=== PATIENT | female | born 1965 | race Caucasian/White ===

== ENCOUNTER 2016-11-05 01:16 | Emergency (ER) | payer OTHER ==
[~2016-11-05] VITALS: Ht 170.2 cm; Wt 100.0 kg
--- NOTE | ~2016-11-05 | CT15 ---
[facility] A Service of [facility] & [facility] RADIOLOGY TEXT RESULTS PATIENT: EB CASTORENA LOCATION: SED : 67 UNIT #: [id number] AGE: [address]: Clifotn Lan MD SEX: F ORDER DR: [id number] [place] [id number] E MR#: [id number] Acc #: [id number] NAME: EB CASTORENA : 1965 SEX: F STUDY DATE/TIME: 11/05/2016 2:06 UNIT: SED ROOM: STUDY DESCRIPTION: CT Angio Chest Attending Physician: Clifton Lan M.D. Ordering Physician: Clifton Lan M.D. Primary Care Physician: Kenyon Thomas M.D. MEDICAL IMAGING REPORT This report is preliminary unless electronic signature is present. EXAM CTA chest with contrast DATE 11/05/2016 HISTORY Acute chest pain and shortness of breath today. Bilateral lower abdominal pain today. Appendectomy. COMPARISON CT abdomen and pelvis with contrast 11/05/2016. CT abdomen and pelvis without contrast 04/18/2013. CT chest, abdomen, pelvis 08/27/2013. PROCEDURE 2 mm axial images through the chest after IV contrast administration. 3-D coronal MIP reformatted images were obtained. This CT exam was performed with one or more of the following radiation dose reduction techniques: Automatic exposure control, adjustment of mA and/or kV according to patient size, and iterative reconstruction. FINDINGS There is aneurysmal dilation of the descending thoracic-upper abdominal aorta measuring 5.9 x 6.1 cm in the transverse plane, extending nearly 9.1 cm craniocaudally on today's examination, with focal dissection along its anterior margin. The aneurysmal dilation appears increased compared to the 04/18/2013 examination where it measured only 5.3 x 5 cm. Additionally, high-density fluid is demonstrated in the posterior left hemithorax inferiorly, thought to represent hemothorax. There is loss of clear delineation of the left lateral margin of the descending thoracic aorta near this level, and acute aortic injury cannot be excluded. There is thought to be focal dissection within the distal descending thoracic STS. [facility] A Service of [facility] & [facility] RADIOLOGY TEXT RESULTS PATIENT: EB CASTORENA LOCATION: SED : 67 UNIT #: [id number] AGE: [address]: Clifton Lan MD SEX: F ORDER DR: aorta versus intramural hematoma (series 5, image 70). There are signs of prior ascending aortic repair. There is ectasia of the ascending thoracic aorta at the sinuses of Valsalva measuring 3.9 cm in the coronal plane. There is aneurysmal dilation of the transverse aorta mid segment up to 4.3 cm, which has not significantly changed from 08/27/2013, and a chronic-appearing dissection flap is seen at this location. There is aneurysmal dilation of the right subclavian artery up to 2.4 cm and the left subclavian artery up to 2.5 cm, each of which appears unchanged from 08/27/2013. Stable mild cardiac enlargement. Probable passive atelectatic type changes within the left lower lobe and lingula. Focal presumed atelectasis within the right middle lobe. Mild cardiomegaly. Mitral valve replacement. Old left rib fractures. No definite acute osseous abnormality. IMPRESSION 1. Abnormal examination. The critical findings have been discussed with Dr. Lan at the time of this dictation. Vascular surgery consultation is recommended at this time. 2. There is aneurysmal dilation of the distal descending thoracic aorta beginning above the level of the diaphragm and extending into the upper abdominal aorta. The aneurysmal dilation extends nearly 9 cm craniocaudally, and measures 5.9 x 6.1 cm transversely, significantly increased in size compared to the 2013 study, where it measured 5.3 x 5 cm. Additionally, left side hemothorax has developed, with loss of clear delineation of the margin of the descending thoracic aorta, worrisome for loss of integrity of the thoracic aortic wall or active aortic bleeding. 3. There is focal dissection flap within the distal descending-upper abdominal aortic junction, which appears new compared to the 2010 examination. 4. Suspected intramural hematoma along the distal descending thoracic aorta (image 80). 5. 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 6. Presumed old surgical changes of ascending thoracic aorta. 7. Ectasia of the aortic root at the sinuses of Valsalva 3.9 cm, thought most likely to be a stable finding. 8. Presumed passive atelectatic type changes within the lingula and left lower lobe. More patchy atelectasis within the right middle lobe. 9. Stable cardiomegaly. Signs of prior mitral valve replacement. 10. CT abdomen and pelvis performed on this same date has been dictated separately. [facility]. [facility] A Service of [facility] RADIOLOGY TEXT RESULTS PATIENT: EB CASTORENA LOCATION: [facility] : 67 UNIT #: [id number] AGE: [address]: Clifton Lan MD SEX: F ORDER DR: Dictated by... Anne-Marie Leavitt M.D. THIS IS AN ELECTRONICALLY VERIFIED REPORT Anne-Marie Leavitt M.D. at 11/05/2016 9:39 PM Brent/vidya TD: 11/05/2016 18:02 JOB #: [id number] MEDICAL IMAGING REPORT Page 1 of 1
--- NOTE | ~2016-11-05 | EKG ---
PATIENT: EB CASTORENA UNIT #: [id number] Ventricular Rate: 55 BPM Atrial Rate: 55 BPM P-R Interval: 118 ms QRS Duration: 88 ms Q-T Interval: 488 ms QTC Calculation(Bezet): 466 ms P [place]: -69 degrees Calculated R [place]: 34 degrees Calculated T [place]: 49 degrees Diagnosis Line: Sinus bradycardia Diagnosis Line: Nonspecific ST abnormality Diagnosis Line: Abnormal ECG Diagnosis Line: When compared with ECG of 28-FEB-2010 22:41, Diagnosis Line: T wave inversion less evident in Anterolateral Diagnosis Line: leads Diagnosis Line: Confirmed by RENÉE CALERO MD ([id number]) on Diagnosis Line: 11/20/2016 10:03:01 PM INTERPRETING : JAZMINE
--- NOTE | ~2016-11-05 | CT2 ---
[facility] A Service of [facility] RADIOLOGY TEXT RESULTS PATIENT: EB CASTORENA LOCATION: SED : 67 UNIT #: [id number] AGE: [address]: Clifton Lan MD SEX: F ORDER DR: [id number] [place] [id number] E MR#: [id number] Acc #: [id number] NAME: EB CASTORENA : 1965 SEX: F STUDY DATE/TIME: 11/05/2016 2:06 UNIT: SED ROOM: STUDY DESCRIPTION: CT Abd and Pelv W Cont Attending Physician: Clifton Lan M.D. Ordering Physician: Clifton Lan M.D. Primary Care Physician: Kenyon Thomas M.D. MEDICAL IMAGING REPORT This report is preliminary unless electronic signature is present. EXAMINATION CT abdomen and pelvis with contrast DATE 11/05/2016 HISTORY Acute chest pain and shortness of breath today with bilateral lower extremity pain. Previous appendectomy. COMPARISON CT abdomen and pelvis without contrast 04/18/2013. PROCEDURE 5 mm axial images from the lung bases through the lesser trochanters after intravenous contrast administration. Enteric contrast not administered. Sagittal and coronal reformatted images were obtained. This CT exam was performed with one or more of the following radiation dose reduction techniques: Automatic exposure control, adjustment of mA and/or kV according to patient size, and iterative reconstruction. FINDINGS ABDOMEN FINDINGS: Incompletely imaged fusiform aneurysmal dilation of the distal descending thoracic aorta, upper abdominal aorta extending nearly 8 cm craniocaudally. The aneurysm measures about 5.9 x 6.1 cm at the level of the diaphragmatic hiatus, increased from the 04/18/2013 examination, where it measured 5.3 x 5 cm. Focal dissection is seen within the abdominal aorta, which appears to begin just above the level of the diaphragmatic hiatus and terminates above the origin of the celiac artery (series 4, image 11 denoted by arrows). The dissection is age indeterminate but is a new finding compared to the postcontrast CT of 06/01/2010. [facility] A Service of [facility] & [facility] RADIOLOGY TEXT RESULTS PATIENT: EB CASTORENA LOCATION: SED : 67 UNIT #: [id number] AGE: [address]: Clifton Lan MD SEX: F ORDER DR: High-density fluid is demonstrated within the posterior left pleural space, and left basilar hemothorax is suspected. Consolidative type change is present in the vicinity of the left lower lobe and lingula, as well. Cyst in the right hepatic lobe. The spleen, gallbladder, pancreas, adrenals are normal. Bilateral renal cortical scarring and moderate bilateral renal atrophy. Signs of previous ventral abdominal hernia repair. There is a recurrent midline abdominal hernia above the mesh measuring nearly 5.1 cm craniocaudally, containing only omental fat. There is also recurrent hernia below the level of the mesh measuring 4.2 cm craniocaudally, containing omental fat. Bowel appears nonthickened and noninflamed. The abdominal aorta is tortuous. There is aneurysmal dilation of the infrarenal abdominal aorta at the level of the bifurcation measuring 4.5 cm transversely, with aneurysmal dilation of the proximal left common iliac artery up to 2.5 cm. There is aneurysmal dilation of the left internal iliac artery up to 2.4 cm. There is mild left perinephric stranding along the lower pole, of indeterminate etiology or significance. PELVIS FINDINGS: IUD in place with uterus retroflexed. Heterogeneous thickening of the uterine fundus could represent leiomyomas. No pelvic free fluid identified. Urinary bladder and rectum are normal. Surgical clips in bilateral inguinal regions. Sacral Tarlov cysts. Lumbar levoscoliosis. No acute osseous abnormalities are identified. IMPRESSION 1. 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 Focal dissection is seen at this same level, which is age indeterminate but is a new finding since more remote 2011 CT abdomen. 2. Hemothorax is demonstrated within the left lower chest. Acute traumatic aortic injury or active aortic bleeding cannot be excluded. Correlate with additional CTA chest findings from this same date. 3. Aneurysmal dilation of the abdominal aortic bifurcation and left common iliac artery and left internal iliac artery as described in the report, increased from prior exam. 4. Additional CT findings include: Ventral abdominal hernias above and below the level of previous mesh repair, containing only fat. 5. Suspected uterine leiomyomas with intrauterine device in place. 6. Appendix not visualized. 7. Hepatic cysts. [facility]. [facility] A Service of [facility] & [facility] RADIOLOGY TEXT RESULTS PATIENT: EB CASTORENA LOCATION: [facility] [place] [place] : 67 UNIT #: [id number] AGE: [address]: Clifton Lan MD SEX: F ORDER DR: 8. CTA chest performed on this same date has been dictated separately. Dictated by... Anne-Marie Leavitt M.D. THIS IS AN ELECTRONICALLY VERIFIED REPORT Anne-Marie Leavitt M.D. at 11/05/2016 9:39 PM JATIN/vidya TD: 11/05/2016 17:50 JOB #: [id number] MEDICAL IMAGING REPORT Page 1 of 1
[~2016-11-05 01:16] MED LIST: ASPIRIN PO; BENICAR PO; CELEXA PO; COZAAR100 MG PO; DIOVAN160 MG PO; FERGON240 ( 27 ) PO; FLO-PRED15 MG/5 ML; LASIX PO; LEVAQUIN PO; NIASPAN PO; NORCO1 TAB 10/3 PO; NORVASC10 MG; PHENERGAN PO; PHENERGAN W/CO120 ML PO; ROBITUSSIN ALL118 ML PO; SEROQUEL50 MG PO; SYNTHROID125; VISTARIL PO; VIT C PO; WELLBUTRIN PO; ZOCOR PO; ZOCOR-BORROW, D10 MG; ZOCOR20 MG PO; [UNRECOGNIZED DRUG - OTHER] PO
[2016-11-05 01:38] LABS: BASOPHIL% 0.6 % (0-2.5); EOSINOPHIL# 0.1 X10e3 (0-0.7); HEMATOCRIT 32.4 % (35.0-45.0); HEMOGLOBIN 10.5 gm/dL (12.0-16.0); LYMPHOCYTE# 2.1 X10e3 (1.0-3.5); LYMPHOCYTE% 35.5 % (17.0-45.0); MEAN CELL VOLUME 85.4 FL (83-96); MEAN CORPUSCULAR HEMOGLOBIN 27.8 PG (28-34); MEAN CORPUSCULAR HGB CONC 32.6 g/dL (30-36); MEAN PLATELET VOLUME 8.7 FL (6.5-11.5); MONOCYTE# 0.5 X10e3 (0-1.0); MONOCYTE% 8.5 % (3.0-12.0); NEUTROPHIL# 3.3 X10e3 (1.5-7.1); NEUTROPHIL% 54.4 % (40-75); PLATELET COUNT 168 X10e3 (140-420); RED BLOOD COUNT 3.79 X10e (3.90-5.30); RED CELL DISTRIBUTION WIDTH 19.4 % (11.0-15.5)
[2016-11-05 01:40] LABS: DIFF IND NO
[2016-11-05 02:00] LABS: POC - CKMB 1.3 ng/mL (0.0-7.9); POC - TROPONIN <0.05 ng/mL (<=0.05)
[2016-11-05 02:00] LABS: ALKALINE PHOSPHATASE 63 U/L (32-92); ALT (SGPT) 11 U/L (10-40); AST (SGOT) 14 U/L (10-42); BILIRUBIN, DIRECT <0.1 mg/dL (0.0-0.2); BILIRUBIN,INDIRECT 0.2 mg/dL (0.0-0.9); BILIRUBIN,TOTAL 0.3 mg/dL (0.2-2.0); BLOOD UREA NITROGEN 21 mg/dL (9-23); CALCIUM SERUM 8.4 mg/dL (8.4-10.2); CARBON DIOXIDE 23 mmol/L (22-31); CHLORIDE 109 mmol/L (100-111); GLOM FILT RATE Estimated 28.6 mL/min (>60); GLUCOSE FASTING 95 mg/dL (70-110); LIPASE 53 U/L (22-51); POTASSIUM 3.1 mmol/L (3.5-5.1); PROTEIN TOTAL SERUM 6.9 g/dL (6.0-8.3); SODIUM 139 mmol/L (135-145)
== END 2016-11-05 04:30 ==
LOC: SED 01:16
PROVIDERS: Emergency Medicine
DX: I71.1 Thoracic aortic aneurysm, ruptured (principal)
CPT/HCPCS: 36415; 71275; 74177; 80048; 80076; 82553; 83690; 84484; 85025; 93005; 96374; 96375; 99291; J1170; J2405; Q9967

== ENCOUNTER → 2016-12-12 | Outpatient (CLI) | payer OTHER ==
[2016-12-12 09:10] LABS: POC - CREATININE 1.52 mg/dL (0.44-1.03)
[2016-12-12 09:10] LABS: POC - CREATININE 1.49 mg/dL (0.44-1.03)
[2016-12-12 09:36] LABS: CREATININE SERUM 2.1 mg/dL (0.6-1.4); GLOM FILT RATE Estimated 26.8 mL/min (>60)
== END | disposition home or self-care (01) ==
LOC: SCT 08:36
PROVIDERS: Surgery
DX: I71.4 Abdominal aortic aneurysm, without rupture (principal)
CPT/HCPCS: 36415; 82565; 84520

== ENCOUNTER → 2016-12-19 | Outpatient (CLI) | payer OTHER ==
--- NOTE | ~2016-12-19 | CT15 ---
[facility] A Service of [facility] & [facility] RADIOLOGY TEXT RESULTS PATIENT: EB CASTORENA [facility] 67 UNIT #: [id number] AGE: [address]: ILEANA THOMPSON MD SEX: F ORDER DR: [id number] [facility] [address] [place], [place] [address] [id number] O MR#: [id number] Acc #: [id number] NAME: EB CASTORENA : 1965 SEX: F STUDY DATE/TIME: 12/19/2016 11:58 UNIT: [facility] ROOM: STUDY DESCRIPTION: CT Angio Chest Attending Physician: Ileana Thompson Referring Physician: Ileana Thompson Ordering Physician: Heriberto Thompson M.D. Primary Care Physician: Kenyon Thomas M.D. MEDICAL IMAGING REPORT This report is preliminary unless electronic signature is present EXAM CT scan of the chest, abdomen and pelvis with angiographic reconstructions HISTORY Follow-up aortic dissection and aortic stent therapy. Marfan's syndrome with back pain for a month. COMPARISON Unenhanced CT scans from 11/09/2016 of the chest and also 11/06/2016 that is a chest angio and CT abdomen and pelvis with contrast from 11/05/2016. TECHNIQUE Spiral imaging was performed through the chest, abdomen and pelvis as the patient was given 70 mL of Isovue 370. 3-D reconstructions of the arterial structures were generated. This CT exam was performed with one or more of the following radiation dose reduction techniques: automatic exposure control, adjustment of mA and/or kV according to patient size, and iterative reconstruction. FINDINGS Along or within the major fissure on the left side there is an ovoid area of probably loculated pleural fluid. It has smooth margins. It is about 2.1 cm in maximum dimension. It is slightly smaller than on 11/05/2016. In the right middle lobe there is a triangular shaped area of parenchymal density in the anterior portion and that is about 2.3 cm in maximum dimension and that is unchanged from the prior study as well. There is some loculated pleural fluid in the left base and minimal left base atelectasis which has diminished since the prior study. Otherwise the lungs are clear. The thyroid gland is normal. There is no mediastinal or hilar adenopathy. The liver contains a cyst measuring 3.0 cm in diameter. The liver is otherwise normal. The gallbladder, spleen, pancreas, and STS. [facility] A Service of [facility] RADIOLOGY TEXT RESULTS PATIENT: EB CASTORENA LOCATION: [facility] : 67 UNIT #: [id number] AGE: [address]: ILEANA THOMPSON MD SEX: F ORDER DR: adrenal glands are normal. Both kidneys are slightly atrophic with thin renal cortex. There is a fat containing umbilical hernia in the upper abdomen in the midline. The opening through the abdominal wall is about 2.0 cm in diameter and contains fat only. There has been previous abdominal wall surgery in the lower abdominal region presumably for hernia repair. There is no adenopathy. The bowel is normal in appearance. The uterus appears to have an IUD within it. The adnexal regions are normal and the bladder is normal. Bones show scoliosis and are otherwise unremarkable. VASCULAR FINDINGS: The patient has a tricuspid aortic valve. The aortic root is about 4.0 cm in transverse dimension which is unchanged from the prior study. There is an aortic dissection beginning in the distal ascending aorta. This dissection extends into the left and right common iliac arteries. This was difficult to appreciate on the prior study because of poor contrast enhancement. The dissections extend up to the top of the images. The posterior aspect of the aortic arch is normal in size measuring 2.4 cm in transverse dimension and no dissection is visualized. The upper descending aorta is normal in size. There is an aortic stent graft beginning in the mid descending aorta that is patent. It extends down to the level of the celiac artery. There is a distal descending aortic aneurysm. 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 There is no evidence of leak into the aneurysm. There is a stent in the proximal celiac artery which is patent. The SMA is patent. The renal arteries are patent. There is fusiform enlargement of the distal abdominal aorta just above the bifurcation measuring up to 4.2 cm in diameter. Both common iliac arteries are slightly enlarged with the left one being at least 1.7 cm in size. The distal abdominal aortic aneurysm involves the origin of the left common iliac artery. The appearance of the distal aorta and iliac vessels is unchanged from 11/05/2016. The external iliac arteries and common femoral arteries are normal. IMPRESSION 1. As compared with 11/05/2016, the probable loculated pleural fluid in the left major fissure is slightly decreased. There is some triangular shaped density in the right base in the middle lobe probably representing atelectasis or scarring which is unchanged. 2. Stable hepatic cyst. 3. The proximal ascending aorta is normal in size. The aortic root is 4 cm in diameter. In the distal ascending aorta there is a dissection that extends into both common carotid arteries and extends up to the top of the images. 4. The aortic stent graft in the distal thoracic aorta is patent. 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 5. Fusiform enlargement of the distal abdominal aorta extending into the left common iliac artery is stable from the prior study. 6. Fat containing hernia above the area of abdominal wall surgery in the [facility] A Service of [facility] RADIOLOGY TEXT RESULTS PATIENT: EB CASTORENA LOCATION: [facility] : 67 UNIT #: [id number] AGE: [address]: ILEANA THOMPSON MD SEX: F ORDER DR: rachelle. 7. Otherwise the study is negative. Dictated by... Soto Govea M.D. THIS IS AN ELECTRONICALLY VERIFIED REPORT Soto Govea M.D. at 12/20/2016 4:02 PM Scott TD: 12/20/2016 14:21 JOB #: [id number] MEDICAL IMAGING REPORT Page 1 of 1 COPY
--- NOTE | ~2016-12-19 | CT14 ---
[facility] A Service of [facility] & [facility] RADIOLOGY TEXT RESULTS PATIENT: EB CASTORENA LOCATION: [facility] : 67 UNIT #: [id number] AGE: [address]: ILEANA THOMPSON MD SEX: F ORDER DR: [id number] [facility] [address] [place], [place] [address] [id number] O MR#: [id number] Acc #: [id number] NAME: EB CASTORENA : 1965 SEX: F STUDY DATE/TIME: 12/19/2016 11:58 UNIT: [facility] ROOM: STUDY DESCRIPTION: CT Angio Abdomen and Pelvis Attending Physician: Ileana Thompson Referring Physician: Ileana Thompson Ordering Physician: Heriberto Thompson M.D. Primary Care Physician: Kenyon Thomas M.D. MEDICAL IMAGING REPORT This report is preliminary unless electronic signature is present EXAM CT angiogram of the abdomen and pelvis HISTORY FINDINGS Please see CT angiogram of the chest for results. Dictated by... Soto Govea M.D. THIS IS AN ELECTRONICALLY VERIFIED REPORT Soto Govea M.D. at 12/20/2016 4:03 PM Scott TD: 12/20/2016 14:22 JOB #: [id number] MEDICAL IMAGING REPORT Page 1 of 1 COPY
[2016-12-19 12:21] LABS: POC - CREATININE 1.83 mg/dL (0.44-1.03)
== END | disposition home or self-care (01) ==
LOC: CCAT 08:15
PROVIDERS: Surgery
DX: I71.4 Abdominal aortic aneurysm, without rupture (principal); K76.89 Other specified diseases of liver; Z95.828 Presence of other vascular implants and grafts; K43.9 Ventral hernia without obstruction or gangrene
CPT/HCPCS: 71275; 74174; 82565; 96360; 96361; Q9967